=== PATIENT | female | born 1985 | race Caucasian/White ===

== ENCOUNTER 2022-08-10 04:38 | Inpatient (IN) | payer OTHER ==
[2022-08-10] VITALS (24 sets, daily range): BP systolic 106–147; BP diastolic 64–107
[~2022-08-10] VITALS: Ht 160 cm; Wt 71.9 kg
[2022-08-10] MEDS ORDERED: PRENMIS3 PO (04:54)
[2022-08-10] MEDS ORDERED: LACTATED RINGER'S 1000 ML IV STA (05:18)
[2022-08-10] MEDS ORDERED: LIDOCAINE 1% MDV 20ML VIAL INFIL PRN (05:20)
[2022-08-10] MEDS ORDERED: TRANEXAMIC ACID INJection 1,000 MG in NS 100 ML IV PRN (05:20)
[2022-08-10] MEDS ORDERED: OXYTOCIN INJ 10UNITS/ML 1ML VIAL IM PRN (05:20)
[2022-08-10] MEDS ORDERED: METHYLERGONOVINE MALEATE 0.2MG/ML 1ML VIAL IM PRN (05:20)
[2022-08-10] MEDS ORDERED: LR 1,000 ML IV SCH (05:20)
[2022-08-10] MEDS ORDERED: OXYTOCIN DRIP 30 UNITS in IV 1 EA IV PRN ×4 (05:20)
[2022-08-10] MEDS ORDERED: CARBOPROST TROMETHAMINE 250 MCG/ML AMP IM PRN (05:20)
[2022-08-10 05:32] LABS: HEMATOCRIT 37.8 % (36.0-47.0); HEMOGLOBIN 12.8 g/dl (12.0-15.5); MEAN CORPUSCULAR HEMOGLOBIN 30.5 pg (27.0-33.0); MEAN CORPUSCULAR HGB CONC 33.9 g/dl (32.0-36.5); MEAN CORPUSCULAR VOLUME 90.2 fl (80.0-96.0); PLATELET COUNT, AUTOMATED 241 10^3/uL (150-450); RED BLOOD COUNT 4.19 10^6/uL (4.00-5.40); WHITE BLOOD COUNT 14.4 10^3/uL (4.0-10.0)
[2022-08-10] MEDS ORDERED: NALOXONE INJ 0.4MG/1ML VIAL IV PRN (06:15)
[2022-08-10] MEDS ORDERED: LR 500 ML IV PRN (06:15)
[2022-08-10] MEDS ORDERED: diphenhydrAMINE 50MG/ML VIAL IV PRN (06:15)
[2022-08-10] MEDS ORDERED: FENTANYL/ROPIVACAINE/NACL BAG 100 ML EPIDURAL SCH (06:15)
[2022-08-10] MEDS ORDERED: ePHEDrine SULFATE 25 MG/5 ML(5MG/ML) SYRINGE IVP PRN (06:15)
[2022-08-10] MEDS ORDERED: ONDANSETRON 4MG 2ML VIAL IV PRN (06:15)
[2022-08-10] MEDS ORDERED: EPIDURAL/PCA KEYS XX PRN (06:15)
[2022-08-10] MEDS ORDERED: RHOGAM 300MCG (1500IU) INJ IM SCH (09:25)
[2022-08-10] MEDS ORDERED: METHYLERGONOVINE MALEATE 0.2 MG TAB PO PRN (09:25)
[2022-08-10] MEDS ORDERED: DOCUSATE SODIUM 100MG CAPSULE PO PRN (09:25)
[2022-08-10] MEDS ORDERED: DIBUCAINE 1% OINTMENT 30GM TOP PRN (09:25)
[2022-08-10] MEDS: IBUPROFEN 800 MG TAB PO PRN ×2 (11:55→20:20)
[2022-08-10] MEDS: ACETAMINOPHEN TAB 650MG DOSE (2X325MG) PO PRN (14:38)
[2022-08-11] MEDS: ACETAMINOPHEN TAB 650MG DOSE (2X325MG) PO PRN (05:34)
[2022-08-11 06:04] VITALS: BP 127/76
[2022-08-11] MEDS ORDERED: PRENATAL VITAMINS CHEWABLE TABLET PO SCH (09:00)
[2022-08-12] MEDS ORDERED: MEASLES,MUMPS,RUBELLA VACCINE INJ (MMR-II) SC.IMMUN ONE (09:00)
== END 2022-08-11 12:35 | disposition home or self-care (01) | DRG 807 ==
LOC: M LDO 04:38 → M LDI 05:07 → M OBS 12:00
PROVIDERS: ADMIT Obstetrics & Gynecology; ATTEND Registered Nurse
PROC: 10E0XZZ Delivery of Products of Conception, External Approach (ICD-10-PCS; principal; 2022-08-10)
DX: O80 Encounter for full-term uncomplicated delivery (principal); Z37.0 Single live birth; Z3A.39 39 weeks gestation of pregnancy

== ENCOUNTER 2025-05-19 07:06 | Day surgery (SDC) | payer OTHER ==
[~2025-05-19] VITALS: Ht 160 cm; Wt 57.3 kg
[~2025-05-19 07:06] MED LIST: PRENMIS3 PO
[2025-05-19] MEDS ORDERED: KETOROLAC 30 MG/ML 1 ML VIAL As Ordered ONE (07:13)
[2025-05-19] MEDS ORDERED: ONDANSETRON 4MG/2ML VIAL As Ordered ONE (07:13)
[2025-05-19] MEDS ORDERED: dexAMETHasone 4 MG/ML 1 ML VIAL As Ordered ONE (07:13)
[2025-05-19] MEDS ORDERED: LIDOCAINE 2% 100 MG/5 ML SDV (FOR ANES.) As Ordered ONE (07:13)
[2025-05-19] MEDS ORDERED: SUGAMMADEX SODIUM 500 MG/5 ML VIAL As Ordered ONE (07:13)
[2025-05-19] MEDS ORDERED: ROCURONIUM BROMIDE 50MG/5ML VIAL As Ordered ONE (07:13)
[2025-05-19 07:32] LABS: PLATELET COUNT, AUTOMATED 288 10^3/uL (150-450)
[2025-05-19] MEDS ORDERED: MIDAZOLAM INJ 2 MG/2 ML VIAL As Ordered ONE (07:46)
[2025-05-19] MEDS ORDERED: ACETAMINOPHEN 1000MG/100ML IV BAG As Ordered ONE (08:04)
[2025-05-19] MEDS ORDERED: MORPHINE 4 MG/ML 1 ML VIAL IV PRN (08:40)
[2025-05-19] MEDS ORDERED: HYDROMORPHONE HCL 0.5 MG/0.5 ML SYRINGE IV PRN (08:40)
[2025-05-19] MEDS: ONDANSETRON 4MG/2ML VIAL IV ONE (10:07)
[2025-05-19 11:03] VITALS: BP 108/62; TEMP 98.3; O2SAT 100
== END 2025-05-19 11:27 | disposition home or self-care (01) ==
LOC: M SDC 07:06
PROVIDERS: ATTEND Obstetrics & Gynecology
DX: Z30.2 Encounter for sterilization (principal); Z90.49 Acquired absence of other specified parts of digestive tract; Z90.89 Acquired absence of other organs; Z91.018 Allergy to other foods
CPT/HCPCS: 36415; 58661; 81025; 85027; 88302; J0665; J1100; J1885; J2250; J2405; J3010